=== PATIENT | male | born 1945 | race Caucasian/White ===

== ENCOUNTER 2024-01-05 05:41 | Inpatient (IN) | payer MEDICARE, BC ==
[~2024-01-05] VITALS: Ht 165.1 cm; Wt 68.0 kg
[~2024-01-05 05:41] MED LIST: VANC250C12 PO
[2024-01-05] MEDS ORDERED: FENTANYL PF 100MCG/2ML AMPUL ONE ×2 (05:47→09:13)
[2024-01-05] MEDS ORDERED: BUPIVACAINE 0.5 % PF 150 MG/30 ML VIAL ONE ×2 (05:48→05:49)
[2024-01-05] MEDS ORDERED: LIDOCAINE 1% INJ 50 ML MDV IJ ONE (05:48)
[2024-01-05] MEDS ORDERED: LIDOCAINE 1%-EPI 1:100,000 20 ML VIAL ONE (05:49)
[2024-01-05] MEDS ORDERED: POLYMYXIN B SULFATE 500,000 UNITS ONE (05:50)
[2024-01-05] MEDS ORDERED: TRANEXAMIC ACID 1,000 MG/10 ML VIAL ONE (05:59)
[2024-01-05] MEDS ORDERED: CLONIDINE HCL 0.1 MG TABLET PO PRN ×2 (06:00)
[2024-01-05] MEDS ORDERED: MENTHOL/CETYLPYRD (CEPACOL) 1 LOZ LOZENGE PO PRN (06:00)
[2024-01-05] MEDS ORDERED: MAG HYDROX/AL HYDROX/SIMETH 30 ML UDC PO PRN (06:00)
[2024-01-05] MEDS ORDERED: HYDROMORPHONE 1 MG/1 ML DISP.SYRIN IM/IV/SC PRN (06:00)
[2024-01-05] MEDS ORDERED: MAGNESIUM HYDROXIDE 30 ML UDC PO PRN (06:00)
[2024-01-05] MEDS ORDERED: CEFAZOLIN 2 GM ONE (06:00)
[2024-01-05] MEDS ORDERED: diphenhydrAMINE HCL 25 MG CAPSULE PO PRN (06:00)
[2024-01-05] MEDS ORDERED: MIDAZOLAM HCL 2 MG/2ML VIAL ONE (06:01)
[2024-01-05] MEDS ORDERED: SEVOFLURANE 250 ML BOTTLE IH ONE (07:19)
[2024-01-05] MEDS ORDERED: DESFLURANE 240 ML BOTTLE IH ONE (07:20)
[2024-01-05] MEDS: TRANEXAMIC ACID 3,000 MG in SODIUM CHLORIDE IRRIG SOLUTION 70 ML IR ONE (07:30)
[2024-01-05] MEDS: TAMSULOSIN 0.4 MG CAP.SR.24H PO SCH ×2 (09:00→21:22)
[2024-01-05] MEDS: FAMOTIDINE (20 MG) 20 MG TABLET PO SCH (09:00)
[2024-01-05] MEDS: PANTOPRAZOLE 40 MG TABLET.DR PO SCH (09:00)
[2024-01-05] MEDS ORDERED: HYDROMORPHONE 1 MG/1 ML DISP.SYRIN ONE (09:22)
[2024-01-05] MEDS ORDERED: ONDANSETRON HCL/PF 4 MG/2 ML VIAL ONE (09:34)
[2024-01-05] MEDS ORDERED: ZOLPIDEM TARTRATE 5 MG TABLET PO PRN (11:30)
[2024-01-05] MEDS ORDERED: OXYC1TAB12 PO (13:12)
[2024-01-05] MEDS ORDERED: ACET-73 PO (13:12)
[2024-01-05] MEDS ORDERED: CELE-85 PO (13:12)
[2024-01-05] MEDS ORDERED: TRIA10.8 NS (13:12)
[2024-01-05] MEDS ORDERED: HYDR50CA9 PO (13:12)
[2024-01-05] MEDS ORDERED: EVOL140P3 SQ (13:12)
[2024-01-05] MEDS ORDERED: AMLO2.5T4 PO (13:12)
[2024-01-05] MEDS ORDERED: TEST75GE10 TP (13:12)
[2024-01-05] MEDS ORDERED: PROP20TA19 PO (13:12)
[2024-01-05] MEDS ORDERED: PANT20TA17 PO (13:12)
[2024-01-05] MEDS ORDERED: TAMS-12 PO (13:12)
[2024-01-05] MEDS ORDERED: CARI350T27 PO (13:12)
[2024-01-05] MEDS ORDERED: LEVO5TAB13 PO (13:12)
[2024-01-05] MEDS ORDERED: LIPA1CAP36 PO (13:12)
[2024-01-05] MEDS ORDERED: HOME MED MISCELLANEOUS XX SCH ×4 (14:30)
[2024-01-05] MEDS: AMLODIPINE BESYLATE 2.5 MG TABLET PO SCH (14:30)
[2024-01-05] MEDS ORDERED: ACETAMINOPHEN ES 500 MG TABLET PO PRN (14:30)
[2024-01-05] MEDS ORDERED: hydrOXYzine PAMOATE 50 MG CAPSULE PO SCH (14:30)
[2024-01-05] MEDS: IV D5/0.45 NACL 1,000 ML IV PRN (14:33)
[2024-01-05] MEDS: ANCEF 1 GM/50 ML D5W IV SCH (14:56)
[2024-01-05] MEDS: FLUTICASONE PROPIONATE 16 GM BOTTLE NS SCH (15:47)
[2024-01-05 16:00] VITALS: BP 134/86; TEMP 98.2; O2SAT 95
[2024-01-05] MEDS ORDERED: AMLODIPINE BESYLATE 2.5 MG TABLET PO SCH (17:00)
[2024-01-05] MEDS: DOCUSATE SODIUM 100 MG CAPSULE PO SCH (17:11)
[2024-01-05] MEDS: CARISOPRODOL 350 MG TABLET PO PRN (17:12)
[2024-01-05] MEDS: LIPASE/PROTEASE/AMYLASE 1 EACH CAPSULE.DR PO SCH (17:13)
[2024-01-05 20:00] VITALS: BP 143/105; TEMP 99.3; O2SAT 94
[2024-01-05 20:35] VITALS: BP 143/105; TEMP 99.3; O2SAT 94
[2024-01-05] MEDS: HYDROCODONE/APAP 10/325MG TABLET PO PRN (20:50)
[2024-01-05] MEDS: PROPRANOLOL HCL 10 MG TABLET PO SCH (21:22)
[2024-01-05] MEDS: hydrOXYzine PAMOATE 25 MG CAPSULE PO SCH (21:23)
[2024-01-05] MEDS: ONDANSETRON HCL/PF 4 MG/2 ML VIAL IV PRN (23:38)
[2024-01-06 07:05] LABS: HEMOGLOBIN 14.4 g/dL (13.5-17.5)
[2024-01-06 08:00] VITALS: BP 147/87; TEMP 98.4; O2SAT 95
[2024-01-06] MEDS: PANTOPRAZOLE 40 MG TABLET.DR PO SCH (08:09)
[2024-01-06] MEDS: LORATADINE 10 MG TABLET PO SCH (08:10)
[2024-01-06] MEDS: oxyCODONE IR immediate release 5 MG TABLET PO PRN (08:10)
[2024-01-06 08:11] VITALS: BP 147/87
[2024-01-06] MEDS: ASPIRIN 325 MG TABLET PO SCH (08:14)
[2024-01-06] MEDS: VANCOMYCIN HCL 125 MG/2.5 ML ORAL.SUSP PO ONE (11:42)
== END 2024-01-06 12:15 | disposition home health service (06) | DRG 483 ==
LOC: DS 05:41 → MED 10:44
PROVIDERS: ADMIT Nurse Practitioner Acute Care; ATTEND Nurse Practitioner Acute Care
PROC: 0RRK00Z Replacement of Left Shoulder Joint with Reverse Ball and Socket Synthetic Substitute, Open Approach (ICD-10-PCS; principal; 2024-01-05)
PROC: 0LS40ZZ Reposition Left Upper Arm Tendon, Open Approach (ICD-10-PCS; 2024-01-05)
DX: M19.012 Primary osteoarthritis, left shoulder (principal); F11.20 Opioid dependence, uncomplicated; K21.9 Gastro-esophageal reflux disease without esophagitis; G89.29 Other chronic pain; E03.9 Hypothyroidism, unspecified; E78.5 Hyperlipidemia, unspecified; I10 Essential (primary) hypertension; Z86.19 Personal history of other infectious and parasitic diseases; N40.0 Benign prostatic hyperplasia without lower urinary tract symptoms; M19.90 Unspecified osteoarthritis, unspecified site; G47.00 Insomnia, unspecified; F41.9 Anxiety disorder, unspecified; Z88.1 Allergy status to other antibiotic agents; Z88.8 Allergy status to other drugs, medicaments and biological substances; Z79.899 Other long term (current) drug therapy; Z96.641 Presence of right artificial hip joint; Z96.653 Presence of artificial knee joint, bilateral; Z90.49 Acquired absence of other specified parts of digestive tract
CPT/HCPCS: 36415; 85027-TC; 86850-TC; A4217; A4223; G0378; J0690; J1100; J1170; J1885; J2250; J2405; J2704; J3010; J3490; J7060; Q0177